=== PATIENT | female | born 1990 | race Caucasian/White ===

== ENCOUNTER 2024-05-12 17:50 | Emergency (ER) | payer OTHER ==
[2024-05-12 18:11] VITALS: BP 124/76; PULSE 82; RESP 17; TEMP 98.4; BMI 25.6
[2024-05-12] MEDS ORDERED: predniSONE 20 MG TABLET (UD) ONE (19:02)
[2024-05-12] MEDS: predniSONE 20 MG TABLET (UD) PO ONE (19:04)
== END 2024-05-12 19:48 | disposition home or self-care (01) ==
LOC: JER 17:50
DX: G51.0 Bell's palsy (principal); R29.810 Facial weakness; R20.0 Anesthesia of skin
CPT/HCPCS: 99283-25